=== PATIENT | female | born 1985 | race Caucasian/White ===

== ENCOUNTER 2016-07-06 08:44 | Emergency (ER) | payer OTHER ==
[~2016-07-06] VITALS: Ht 157.5 cm; Wt 50.8 kg
--- NOTE | 2016-07-06 09:16 | ED HEAD/FACIAL INJ COMPLAINT ---
History of Present Illness General Chief Complaint: Laceration Procedure Stated Complaint: FELL DOWN THE STAIRS FACE LAC Source: patient Exam Limitations: no limitations Vital Signs & Intake/Output Vital Signs & Intake/Output Vital Signs Date Time Temp Pulse Resp B/P Pulse O2 O2 Flow FiO2 Ox Delivery Rate 07/06 1040 98.1 76 18 118/74 98 Room Air 07/06 0849 97.3 83 18 124/78 99 Room Air Allergies Coded Allergies: No Known Allergies (07/06/16) Reconcile Medications No Known Home Medications Triage Note: 31 Y/O FEMALE C/O LACERATION TO L EYE/EYEBROW S/P FALL ON STAIRS THIS AM; SLIPPED ON STAIRS OUTSIDE, 3 STEPS. PT DENIES LOC. SMALL LAC JUST ABOVE L EYE. UNKNOWN LAST TETANUS. DENIES INJURING TEETH, DENIES BLOODY NOSE. DENIES OTHER INJURIES OR COMPLAINTS. Triage Nurses Notes Reviewed? yes Onset: Just prior to arrival Severity: moderate Severity Numbers: 8 Location: left orbit, maxillary bone Method of Injury: fall Loss of Consciousness: no loss of consciousness : No Patient currently breastfeeds: No HPI: Patient is a 31-year-old female presenting to the emergency department with chief complaint after slip and fall going down steps on her way to work just prior to arrival. She reports that the sensor simply. She was wearing high heels. She slipped and fell and hit the left side of her face on the stairway. Denies any loss of consciousness. She was able to get up after the fall but noticed that she had a laceration above her left eye and decided to come in for evaluation. She also reports moderate to severe left cheekbone pain. Denies taking anything for pain prior to arrival. Pain does not radiate. Denies any visual changes. Denies any nausea or vomiting fevers or chills chest pain or shortness of breath. No abdominal pain. Denies any back pain or neck pain. Unsure of tetanus immunization. (SUSANA PARIS,USMAN) Past History Travel History Traveled to [place] past 21 day No Medical History Any Pertinent Medical History? see below for history Neurological: NONE EENT: NONE Cardiovascular: NONE Respiratory: NONE Gastrointestinal: NONE Hepatic: NONE Renal: NONE Musculoskeletal: NONE Psychiatric: NONE Endocrine: NONE Blood Disorders: NONE Cancer(s): NONE COMMERCIAL REAL ESTATE BROKER/Reproductive: NONE Surgical History Surgical History: non-contributory Psychosocial History What is your primary language Bulgarian Tobacco Use: Never used Family History Hx Contributory? No (USMAN BOONE) Review of Systems Review of Systems Constitutional: Reports: no symptoms. Comments Review of systems: See HPI, All other systems negative. Constitutional, no chills fever or weight loss HEENT: No visual changes no sore throat no congestion Cardiovascular: No chest pain ,palpitation Skin, no jaundice no rashes Respiratory: No dyspnea cough sputum or hemoptysis GI: No nausea no vomiting : No dysuria No hematuria Muscle skeletal: no back pain, no neck pain, Neurologic: No numbness no confusion Psych: No stress anxiety Immunology: No splenectomy or history of AIDS (USMAN BOONE) Physical Exam Physical Exam General Appearance: no apparent distress, alert, awake, comfortable Cranial Nerves: cranial nerves II through XII grossly intact. Comments: Well-developed well-nourished person in no acute distress HEENT: extraocular motion intact, no nystagmus. Pupils equally round and reactive to light and accommodation. Nose is atraumatic. No tenderness to palpation over the nasal bridge. No septal hematoma. Moderate tenderness to palpation and edema noted to palpation over the left maxillary sinus. Tender to palpation over the left orbit. External auditory canal and Tympanic membranes clear. Pharynx normal. No swelling or edema. Neck: Supple, no lymphadenopathy, normal range of motion without pain or tenderness Back: Nontender, no CVA tenderness. Full range of motion Cardiovascular: Regular rate and rhythms no murmurs rubs or gallops, normal JVP Respiratory: Chest nontender. No respiratory distress.breath sounds clear to auscultation bilaterally Extremity: No edema, radial pulses are 2+ bilaterally. Full range of motion of upper and lark Shoney's without difficulty or pain. 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 Neuro: Alert oriented x3, motor sensory normal, cranial nerves II through XII grossly intact. Cerebellar testing is unremarkable. Skin: 3 cm linear well approximated laceration noted just above the left eye on the lateral aspect of the orbit. Mild active bleeding. No foreign bodies. No surrounding erythema. Mild edema in this area. Psych: Mood and affect is normal, memory and judgment is normal. (USMAN BOONE) Progress Differential Diagnosis: orbit fracture, skull fracture, laceration, abrasion, contusion, need for tetanus prophylaxis Plan of Care: Orders Procedure Date/time Status URINE 07/06 922 Complete Laboratory Tests 07/06/16 0940: Urine Test NEGATIVE Diagnostic Imaging: Viewed by Me: CT Scan. Discussed w/RAD: CT Scan. Radiology Impression: PATIENT: YAIMA RASMUSSEN PRESENT AGE: 31 PATIENT ACCOUNT NO: [id number] : 86 LOCATION: [facility] ORDERING PHYSICIAN: USMAN PARSI SERVICE DATE: 07/06/16 EXAM TYPE: CAT - CT MAXILLOFACIAL W/O CON EXAMINATION: CT MAXILLOFACIAL WITHOUT CONTRAST CLINICAL INFORMATION: Pain status post head injury. COMPARISON: None. TECHNIQUE: Multidetector helical imaging was performed in the axial plane with generation of coronal and sagittal reformatted images. DLP: 547.66 mGy-cm FINDINGS: The visualized calvarium is intact. The mastoid air cells are clear. The orbits, globes, and the lamina papyracea are intact. The orbital apices, optic canals, and retrobulbar fat planes are normal. The nasal bones, maxillary flores, pterygoid plates and zygomatic arches are intact. There are no air-fluid levels in the maxillary sinuses. There are aerosolized secretions in the right sphenoid sinus. The mandible and temporomandibular joints are unremarkable. The nasal septum is deviated to the right and there is a right-sided bony nasal septal spur. There is soft tissue swelling in the left malar region, and there may be a small subcutaneous hematoma. The visualized intracranial structures are unremarkable. IMPRESSION: 1. There are no facial fractures. 2. There is soft tissue swelling in the left malar region with a possible small subcutaneous hematoma. 3. The maxillary sinuses are well-aerated without fluid levels. There are aerosolized secretions in the right sphenoid sinus. Comments: Patient given IM tetanus booster, by mouth Tylenol on arrival. She'll go for CT secondary to extensive pain over the maxillary sinus. Patient informed of CT results. Patient feeling better after Tylenol and icing the area. She'll follow-up in 7 days for suture removal. Educated on signs and symptoms to return. (SUSANA PARIS,USMAN) Departure Departure Time of Disposition: 1036 Disposition: HOME OR SELF CARE Condition: Stable Clinical Impression Primary Impression: Minor head injury Qualifiers: Encounter type: initial encounter Qualified Code: S00.90XA - Unspecified superficial injury of unspecified part of head, initial encounter Secondary Impressions: Laceration Referrals: PATIENT HAS NO PRIMARY CARE DR (PCP/Family) Additional Instructions: Return in 7 days for suture removal. Keep clean and dry. Return sooner if he develop any worsening headaches, confusion or vomiting. Take [id number] Motrin and Tylenol as directed for any aches or pains. Increase fluids. Avoid bright lights, loud sounds are excessive stimuli as ischemic headaches worse. Departure Forms: Customer Survey General Discharge Information Prescriptions: Current Visit Scripts No Known Home Medications (USMAN BOONE) PA/[employer] Co-Sign Statement Statement: ED Attending supervision documentation- [] I saw and evaluated the patient. I have also reviewed all the pertinent lab results and diagnostic results. I agree with the findings and the plan of care as documented in the PA's/[employer]'s documentation. x I have reviewed the ED Record and agree with the PA's/[employer]'s documentation. [] Additions or exceptions (if any) to the PAs/[employer]'s note and plan are summarized below: [] (LATOYA NGUYEN,VARGAS) Procedures Laceration/Wound Repair Laceration/Wound Repair: Wound Location: face Wound's Depth, Shape: linear, subcutaneous Wound Length (cm): 5 Wound Explored: clean, no foreign body removed, irrigated extensively Irrigated w/ Saline (ccs): 250 Betadine Prep? Yes Anesthesia: 1% lidocaine Volume Anesthetic (ccs): 4 Wound Debrided: minimal Wound Repaired With: sutures Suture Size/Type: 5:0, nylon Number of Sutures: 5 Layer Closure? No Date of Last Tetanus: 07/06/16 Tetanus Status: up to date Progress: Patient tolerated procedure well. (USMAN BOONE)
--- NOTE | 2016-07-06 10:31 | CT SCAN REPORT ---
EXAMINATION: CT MAXILLOFACIAL WITHOUT CONTRAST CLINICAL INFORMATION: Pain status post head injury. COMPARISON: None. TECHNIQUE: Multidetector helical imaging was performed in the axial plane with generation of coronal and sagittal reformatted images. DLP: 547.66 mGy-cm FINDINGS: The visualized calvarium is intact. The mastoid air cells are clear. The orbits, globes, and the lamina papyracea are intact. The orbital apices, optic canals, and retrobulbar fat planes are normal. The nasal bones, maxillary flores, pterygoid plates and zygomatic arches are intact. There are no air-fluid levels in the maxillary sinuses. There are aerosolized secretions in the right sphenoid sinus. The mandible and temporomandibular joints are unremarkable. The nasal septum is deviated to the right and there is a right-sided bony nasal septal spur. There is soft tissue swelling in the left malar region, and there may be a small subcutaneous hematoma. The visualized intracranial structures are unremarkable. IMPRESSION: 1. There are no facial fractures. 2. There is soft tissue swelling in the left malar region with a possible small subcutaneous hematoma. 3. The maxillary sinuses are well-aerated without fluid levels. There are aerosolized secretions in the right sphenoid sinus.
[2016-07-06 10:40] VITALS: BP 118/74
== END 2016-07-06 10:42 ==
LOC: ERH 08:44
DX: S01.112A Laceration without foreign body of left eyelid and periocular area, initial encounter (principal); S09.90XA Unspecified injury of head, initial encounter; W10.9XXA Fall (on) (from) unspecified stairs and steps, initial encounter
CPT/HCPCS: 81025; 90471; 90714